=== PATIENT | male | born 1960 | race Caucasian/White ===

== ENCOUNTER 2019-02-28 19:56 | Emergency (ER) | payer OTHER ==
[~2019-02-28] VITALS: Ht 167.6 cm; Wt 83.9 kg
[2019-02-28 20:07] VITALS: Ht 167.6 cm; Wt 83.9 kg
[2019-02-28 21:23] LABS: CALCIUM 8.3 mg/dL (8.5-10.1); CARBON DIOXIDE 27.4 mmol/L (21-32); CHLORIDE SERUM 100 mmol/L (98-107); GFR1 > 60 mL/min; GLUCOSE SERUM 112 mg/dL (74-106); POTASSIUM SERUM 3.6 mmol/L (3.5-5.1); SODIUM SERUM 137 mmol/L (136-145)
[2019-02-28 21:27] LABS: ALKALINE PHOSPHATASE 79 U/L (46-116); ALT/SGPT 16 U/L (16-63); AST/SGOT 23 U/L (15-37); BILIRUBIN TOTAL 0.5 mg/dL (0.20-1.00); MAGNESIUM 2.2 mg/dL (1.8-2.4); TOTAL PROTEIN, SERUM 6.7 g/dL (6.4-8.2)
[2019-02-28 21:31] LABS: ALBUMIN 2.9 g/dL (3.4-5.0)
[2019-02-28 21:33] LABS: BASOPHIL % 0.9 % (0-2); PLATELET COUNT 335 x10^3mcL (130-400); RED CELL DISTRIBUTION WIDTH 18.1 % (11.5-14.5)
[2019-03-01 06:52] VITALS: BP 114/68
== END 2019-03-01 06:52 | disposition home or self-care (01) ==
LOC: ED 19:56
PROVIDERS: Emergency Medicine
DX: R25.2 Cramp and spasm (principal); I10 Essential (primary) hypertension
CPT/HCPCS: 36415; J1885; Q0092

== ENCOUNTER 2019-03-01 21:52 | Emergency (ER) | payer OTHER ==
[~2019-03-01] VITALS: Ht 167.6 cm; Wt 86.2 kg
[2019-03-01 22:34] VITALS: Ht 167.6 cm; Wt 86.2 kg
[2019-03-02 02:19] VITALS: BP 115/64
== END 2019-03-02 02:19 | disposition home or self-care (01) ==
LOC: ED 21:52
DX: S83.91XA Sprain of unspecified site of right knee, initial encounter (principal); S80.211A Abrasion, right knee, initial encounter; I10 Essential (primary) hypertension; Z95.0 Presence of cardiac pacemaker; W18.30XA Fall on same level, unspecified, initial encounter; Y93.89 Activity, other specified; Y92.89 Other specified places as the place of occurrence of the external cause; Y99.8 Other external cause status
CPT/HCPCS: 90715